=== PATIENT | female | born 1990 | race Caucasian/White ===

== ENCOUNTER 2016-08-24 23:49 | Emergency (ER) | payer MEDICAID ==
[~2016-08-24] VITALS: Ht 170.2 cm; Wt 106.8 kg
[~2016-08-24 23:49] MED LIST: IBUP-1222 PO; LEVO25TA4 PO; OXYC-302 PO; PREN1TAB60 PO
[2016-08-25] MEDS ORDERED: WYCILLIN 1,200,000 UNITS/2 ML IM ONE (01:00)
[2016-08-25] MEDS ORDERED: BICILLIN-LA 1,200,000 UNITS/2 ML IM ONE (01:00)
[2016-08-25] MEDS ORDERED: KETOROLAC 30 MG/1 ML ONE (01:15)
[2016-08-25] MEDS ORDERED: DEXAMETHASONE 4 MG TABLET ONE (01:16)
[2016-08-25] MEDS ORDERED: DEXAMETHASONE 4 MG TABLET PO ONE (01:30)
[2016-08-25] MEDS ORDERED: KETOROLAC 30 MG/1 ML IM ONE (01:30)
[2016-08-25 01:32] VITALS: BP 134/78
== END 2016-08-25 01:34 | disposition home or self-care (01) ==
LOC: ED 23:59
DX: J02.0 Streptococcal pharyngitis (principal); R07.9 Chest pain, unspecified; R06.02 Shortness of breath; E03.9 Hypothyroidism, unspecified; Z88.6 Allergy status to analgesic agent
CPT/HCPCS: 93005; 96372; 99284; J0561; J1885

== ENCOUNTER 2018-02-06 11:51 | Emergency (ER) | payer MEDICAID ==
[~2018-02-06] VITALS: Ht 170.2 cm; Wt 108.0 kg
[~2018-02-06 11:51] MED LIST changes: +PREN-3 PO
[2018-02-06] MEDS ORDERED: ACETAMINOPHEN 500 MG TABLET PO ONE (12:30)
[2018-02-06] MEDS ORDERED: ACETAMINOPHEN 500 MG TABLET ONE (12:33)
[2018-02-06 12:49] LABS: RAPID INFLUENZA B Negative (Negative)
[2018-02-06 12:50] LABS: RAPID INFLUENZA A POSITIVE (Negative)
[2018-02-06 13:07] VITALS: BP 131/86
== END 2018-02-06 13:12 | disposition home or self-care (01) ==
LOC: ED 13:06
DX: J09.X2 Influenza due to identified novel influenza A virus with other respiratory manifestations (principal); R50.81 Fever presenting with conditions classified elsewhere
CPT/HCPCS: 71046; 87081; 87400; 87880; 99284

== ENCOUNTER 2019-04-16 15:02 | Inpatient (IN) | payer MEDICAID ==
[~2019-04-16] VITALS: Ht 170.2 cm; Wt 117.8 kg
--- NOTE | 2019-04-16 16:13 | NUR ---
PT AMBULATORY TO ROOM 36 W/ C/O LOWER BACK PAIN, CLOUDY URINE W/O HEMATURIA/DYSURIA. PT STATES SHE ALSO HAS SOME PAIN WHILE NEEDING TO HAVE BM, BUT NO PAIN DURING THE ACT OF HAVING BM. PT THINKS SHE HAS UTI SX ARE SIMILAR. PT RESTING ON GURNEY. NADN. MONITORS APPLIED. PIV INITIATED AND IVF STARTED. HANK LEONARD AT BEDSIDE.
--- NOTE | 2019-04-16 16:27 | NUR ---
PT RESTING ON GURNEY. NADN. COMBS.
[2019-04-16 16:29] LABS: MICROSCOPIC AUTO
[2019-04-16 16:31] LABS: BASOPHILS # (AUTO) 0.05 x10^3/uL (0-0.1); BASOPHILS % (AUTO) 0 % (0-1); EOSINOPHILS # (AUTO) 0.09 x10^3/uL (0-0.4); EOSINOPHILS % (AUTO) 1 % (1-7); LYMPHOCYTES # (AUTO) 1.72 x10^3/uL (1-3.4); LYMPHOCYTES % (AUTO) 13 % (22-44); MD NO; MEAN CORPUSCULAR HEMOGLOBIN 29.2 pg (27.0-34.8); MEAN CORPUSCULAR HGB CONC 33.7 g/dL (32.4-35.8); MEAN CORPUSCULAR VOLUME 86.5 fL (80-100); MEAN PLATELET VOLUME 9.6 fL (7.4-10.4); MONOCYTES # (AUTO) 0.94 x10^3/uL (0.2-0.8); MONOCYTES % (AUTO) 7 % (2-9); NEUTROPHILS % (AUTO) 80 % (42-75); PLATELET COUNT 311 x10^3/uL (130-400); RED BLOOD COUNT 5.14 x10^6/uL (3.82-5.3)
[2019-04-16 16:31] LABS: CULTURE INDICATED? YES
[2019-04-16 16:40] LABS: ALANINE AMINOTRANSFERASE 25 U/L (12-78); ALBUMIN 3.9 g/dL (3.4-5.0); ANION GAP 5 mmol/L (5-15); CALCIUM 8.7 mg/dL (8.5-10.1); CHLORIDE 109 mmol/L (98-107); CREATININE 0.81 mg/dL (0.55-1.02)
[2019-04-16] MEDS ORDERED: CEFTRIAXONE PMX 1GM/50ML 50 ML ONE (16:43)
[2019-04-16] MEDS ORDERED: ACETAMINOPHEN 500 MG TABLET ONE (16:43)
[2019-04-16 16:44] LABS: ALKALINE PHOSPHATASE 110 U/L (45-117); BILIRUBIN,TOTAL 0.5 mg/dL (0.2-1.0); TOTAL PROTEIN 7.9 g/dL (6.4-8.2)
[2019-04-16] MEDS ORDERED: SODIUM CHLORIDE 0.9% 1,000ML IVBOLUS ONE ×2 (17:00→18:00)
[2019-04-16] MEDS ORDERED: ACETAMINOPHEN 500 MG TABLET PO ONE (17:00)
[2019-04-16] MEDS ORDERED: CEFTRIAXONE PMX 1GM/50ML 50 ML IV ONE ×2 (17:00→20:30)
[2019-04-16] MEDS ORDERED: SODIUM CHLORIDE FLUSH 10ML SYR IVF ONE (17:00)
--- NOTE | 2019-04-16 17:30 | NUR ---
PT RESTING ON GURNEY. NADN. COMBS.
[2019-04-16] MEDS ORDERED: IBUPROFEN 800 MG TABLET PO ONE (18:00)
[2019-04-16] MEDS ORDERED: IBUPROFEN 800 MG TABLET ONE (18:00)
--- NOTE | 2019-04-16 18:24 | NUR ---
PT RESTING ON GURNEY. NADN. COMBS.
[2019-04-16] MEDS ORDERED: MULT-658 PO (18:47)
--- NOTE | 2019-04-16 19:04 | NUR ---
REPORT GIVEN TO RICCI PEREZ RN.
[2019-04-16] MEDS ORDERED: ACETAMINOPHEN 325 MG TABLET PO PRN (20:30)
[2019-04-16] MEDS ORDERED: DOCUSATE 100 MG CAPSULE PO PRN (20:30)
[2019-04-16] MEDS ORDERED: METHOCARBAMOL 500 MG TABLET PO PRN (20:30)
[2019-04-16] MEDS ORDERED: LIDODERM 5% PATCH TD PRN (20:30)
[2019-04-16] MEDS ORDERED: ONDANSETRON 2MG/ML, 2ML IVPush PRN (20:30)
[2019-04-16] MEDS ORDERED: LACTATED RINGERS 1,000 ML IV SCH (20:30)
[2019-04-16] MEDS ORDERED: TEMAZEPAM 15 MG CAPSULE PO PRN (20:30)
[2019-04-16 21:33] VITALS: BP 122/77
[2019-04-17 00:59] VITALS: BP 117/68
[2019-04-17 06:09] LABS: LYMPHOCYTES % (AUTO) 20 % (22-44); MEAN CORPUSCULAR HEMOGLOBIN 28.7 pg (27.0-34.8); MEAN CORPUSCULAR HGB CONC 33.2 g/dL (32.4-35.8); MEAN CORPUSCULAR VOLUME 86.6 fL (80-100); MEAN PLATELET VOLUME 9.5 fL (7.4-10.4); NEUTROPHILS % (AUTO) 69 % (42-75); PLATELET COUNT 274 x10^3/uL (130-400); RED BLOOD COUNT 4.51 x10^6/uL (3.82-5.3); RED CELL DISTRIBUTION WIDTH 14.1 % (9.6-15.2)
[2019-04-17 06:10] LABS: BASOPHILS # (AUTO) 0.06 x10^3/uL (0-0.1); BASOPHILS % (AUTO) 1 % (0-1); EOSINOPHILS # (AUTO) 0.15 x10^3/uL (0-0.4); EOSINOPHILS % (AUTO) 1 % (1-7); MD NO; MONOCYTES # (AUTO) 0.96 x10^3/uL (0.2-0.8); MONOCYTES % (AUTO) 9 % (2-9); NEUTROPHILS # (AUTO) 7.85 x10^3/uL (1.8-6.8)
[2019-04-17 06:14] LABS: CHLORIDE 110 mmol/L (98-107)
[2019-04-17 06:21] LABS: ANION GAP 7 mmol/L (5-15); CREATININE 0.75 mg/dL (0.55-1.02)
[2019-04-17 08:25] VITALS: BP 124/71
[2019-04-17] MEDS: LIDODERM REMOVE PATCH NOTE XX SCH (10:00)
[2019-04-17 12:37] VITALS: BP 101/67
[2019-04-17] MEDS: CEFTRIAXONE PMX 2GM/50ML 50 ML IV SCH (16:30)
[2019-04-17 18:06] VITALS: BP 127/77
[2019-04-17] MEDS ORDERED: KETOROLAC 30 MG/1 ML IVPush SCH (23:30)
[2019-04-17] MEDS: KETOROLAC 30 MG/1 ML IVPush PRN (23:40)
[2019-04-18 01:03] VITALS: BP 106/68
[2019-04-18 05:34] LABS: BASOPHILS # (AUTO) 0.06 x10^3/uL (0-0.1); BASOPHILS % (AUTO) 1 % (0-1); EOSINOPHILS # (AUTO) 0.28 x10^3/uL (0-0.4); EOSINOPHILS % (AUTO) 3 % (1-7); LYMPHOCYTES # (AUTO) 3.05 x10^3/uL (1-3.4); LYMPHOCYTES % (AUTO) 31 % (22-44); MD NO; MEAN CORPUSCULAR HEMOGLOBIN 28.8 pg (27.0-34.8); MEAN CORPUSCULAR HGB CONC 33.5 g/dL (32.4-35.8); MEAN CORPUSCULAR VOLUME 85.9 fL (80-100); MEAN PLATELET VOLUME 9.4 fL (7.4-10.4); MONOCYTES # (AUTO) 1.01 x10^3/uL (0.2-0.8); MONOCYTES % (AUTO) 10 % (2-9); NEUTROPHILS # (AUTO) 5.55 x10^3/uL (1.8-6.8); NEUTROPHILS % (AUTO) 56 % (42-75); PLATELET COUNT 255 x10^3/uL (130-400); RED BLOOD COUNT 4.49 x10^6/uL (3.82-5.3); RED CELL DISTRIBUTION WIDTH 14.1 % (9.6-15.2)
[2019-04-18 05:41] LABS: ANION GAP 8 mmol/L (5-15); CALCIUM 8.5 mg/dL (8.5-10.1); CHLORIDE 108 mmol/L (98-107); CREATININE 0.75 mg/dL (0.55-1.02)
[2019-04-18 07:46] VITALS: BP 136/81
[2019-04-18] MEDS: LIDODERM REMOVE PATCH NOTE XX SCH (09:34)
[2019-04-18] MEDS: KETOROLAC 30 MG/1 ML IVPush PRN (14:14)
[2019-04-18 15:24] VITALS: BP 108/73
[2019-04-18] MEDS: CEFTRIAXONE PMX 2GM/50ML 50 ML IV SCH (17:41)
[2019-04-18 18:39] VITALS: BP 118/73
[2019-04-19] MEDS: KETOROLAC 30 MG/1 ML IVPush PRN (00:01)
[2019-04-19 00:06] VITALS: BP 108/70
[2019-04-19 07:22] VITALS: BP 107/74
[2019-04-19] MEDS: LIDODERM REMOVE PATCH NOTE XX SCH (10:00)
[2019-04-19 12:25] VITALS: BP 100/64
[2019-04-19] MEDS ORDERED: SULF1TAB24 PO (13:19)
[2019-04-19] MEDS ORDERED: LACT1CAP35 PO (13:19)
== END 2019-04-19 15:45 | disposition home or self-care (01) | DRG 872 ==
LOC: ED 18:45 → OBSVTOIN 18:54 → EDIP 18:54 → INTOOBSV 18:54 → 3N 21:00 → DCLOUNGE 04-19 15:30
PROVIDERS: ADMIT Internal Medicine; ATTEND Internal Medicine
DX: A41.9 Sepsis, unspecified organism (principal); Z68.41 Body mass index [BMI] 40.0-44.9, adult; N10 Acute pyelonephritis; B96.20 Unspecified Escherichia coli [E. coli] as the cause of diseases classified elsewhere; E03.9 Hypothyroidism, unspecified; E66.9 Obesity, unspecified; N92.6 Irregular menstruation, unspecified; Z82.49 Family history of ischemic heart disease and other diseases of the circulatory system; Z83.3 Family history of diabetes mellitus; Z88.8 Allergy status to other drugs, medicaments and biological substances
CPT/HCPCS: 36415; 80048; 80053; 81001; 83605; 83735; 84100; 84703; 85025; 87040; 87077; 87086; 87186; 99285; G0378; J0696; J1885; J7030; J7120